=== PATIENT | male | born 1985 | race Caucasian/White ===

== ENCOUNTER 2020-12-05 02:21 | Emergency (ER) | payer MEDICAID ==
[~2020-12-05] VITALS: Ht 182.9 cm; Wt 78.0 kg
[2020-12-05 02:25] VITALS: BP 114/80
[2020-12-05] MEDS ORDERED: ACETAMINOPHEN 325MG TABLET PO ONE (02:45)
[2020-12-05] MEDS ORDERED: NAPR-1176 MT (03:34)
[2020-12-05] MEDS ORDERED: ACET-2708 MT (03:34)
== END 2020-12-05 03:53 ==
LOC: ER 02:21
DX: S62.612A Displaced fracture of proximal phalanx of right middle finger, initial encounter for closed fracture (principal); Y04.0XXA Assault by unarmed brawl or fight, initial encounter; Y93.89 Activity, other specified; Y92.89 Other specified places as the place of occurrence of the external cause
CPT/HCPCS: 29130; 73130; 99283